=== PATIENT | female | born 1935 | race Caucasian/White ===

== ENCOUNTER 2020-08-21 09:09 | Emergency (ER) | payer MEDICARE, OTHER ==
[2020-08-21 09:51] LABS: BASOPHIL 0.7 % (0-2); EOSINOPHIL 1.7 % (0-7); HCT 43.4 % (37.0-47.0); HGB 14.1 g/dl (12.5-16.0); LYMPHOCYTE 22.9 % (15-48); MCHC 32.5 g/dL (32.0-36.0); MCV 98.4 fL (78.0-100.0); MONOCYTE 10.7 % (0-12); MPV 10.5 fL (6.0-9.5); NEUTROPHIL 63.6 % (41-80); NRBC 0; PLT 239 K/uL (150-400); RBC 4.41 M/uL (4.20-5.40); RDW 12.7 % (11.5-14.0); WBC 4.6 K/uL (4.0-10.5)
[2020-08-21 11:05] LABS: ALBUMIN 3.1 g/dL (3.4-5.0); BILIRUBIN - TOTAL 0.4 mg/dL (0.2-1.0); BUN/CREAT RATIO (CALC) 28.9 RATIO; CREATININE 0.76 mg/dL (0.51-0.95); GLOBULIN (CALCULATION) 3.9 g/dL; POTASSIUM 4.4 mmol/L (3.5-5.1)
== END 2020-08-21 11:19 | disposition home or self-care (01) ==
LOC: FER 09:09
PROVIDERS: Emergency Medicine
DX: R55 Syncope and collapse (principal)
CPT/HCPCS: 36415; 80053; 85025; 93005